=== PATIENT | male | born 1945 | race Caucasian/White ===

== ENCOUNTER 2016-05-23 07:00 | Day surgery (SDC) | payer OTHER ==
[~2016-05-23] VITALS: Ht 180.3 cm; Wt 95.0 kg
[~2016-05-23 07:00] MED LIST: ASPI-973 PO; CARV3.122 PO; CETI5TAB28 PO; DILT120C52 PO; FLUT16SP NS; HYDR-3938 PO; KLO5T PO; LOSA25TA21 PO; Lactated Ringer's 1,000 ML IV ONE; MULT-1018 PO; ZOLP5TAB6 PO; ZYL100 PO
[2016-05-23] MEDS ORDERED: Lactated Ringer's 1,000 ML IV SCH (07:27)
--- NOTE | 2016-05-23 07:27 | PCM.HPANE ---
Patient Data Surgeon Admitting Provider: Attending Provider:Eduardo Hernandez MD Primary Care Physician:Germain Campos MD Other Provider:Lalo Castillo Anesthesia Reason for Visit Colon Polyp, Epigastic Pain Ht/WT & BMI Body Mass Index Allergies Coded Allergies: Tcxkhyx-Icg-Fro Reductase Inhibitor (Verified Allergy, Unknown, 05/22/16) Past Anesthesia History Anesthesia History: Denies:: Abnormal Airway, Difficult Intubation Diabetes History Hx Diabetes?: No MRSA MRSA: No Medications Hypertension Medication: Yes Home Meds Incl Beta Corby: Yes Date Beta Cobry Taken: May 23, 2016 Time Beta Corby Taken: 04:45 Reported Medications Testosterone Enanthate 200 Mg/1 Ml [id number] Mg IM 05/23/16 Sildenafil Citrate (Sildenafil)20 Mg Avpmqt82 Mg PO 05/23/16 Ranitidine 150 Mg [id number] Mg PO DAILY Ref 0 05/23/16 Hydrochlorothiazide 12.5 Mg Toqwjq73.5 Mg PO DAILY 30 Days Ref 0 05/23/16 Meloxicam 7.5 Mg/5 Ml Oral.susp15 Mg PO DAILY 30 Days 05/23/16 Zolpidem 5 Mg TabletUnknown Dose PO HS PRN For Insomnia Ref 0 05/22/16 Multivitamin (Multi Vitamin Daily)1 Each Tablet1 Each PO DAILY 30 Days Ref 0 05/22/16 Losartan Potassium 25 Mg TabletUnknown Dose PO DAILY 05/22/16 Hydralazine 10 Mg Buyrzl67 Mg PO BID Ref 0 05/22/16 Fluticasone Propionate (Fluticasone Propionate Nasal)16 Gm [place].susp2 [place] NS BID #16 GM Ref 0 05/22/16 Clonazepam 0.5 Mg TabletUnknown Dose PO TID PRN For Anxiety Ref 0 05/22/16 Cetirizine 5 Mg Tablet5 Mg PO HS Ref 0 05/22/16 Carvedilol 3.125 Mg TabletUnknown Dose PO BID Ref 0 05/22/16 Diltiazem ER (Cartia XT)120 Mg Cap.er.24hUnknown Dose PO DAILY 05/22/16 Aspirin 81 Mg Fymlpv25 Mg PO DAILY Ref 0 05/22/16 Allopurinol 100 Mg TabletUnknown Dose PO DAILY Ref 0 05/22/16 History History of ENT Problems?: No Hx of Heart Problems?: Yes Cardiovascular History: Positive for:: Hypertension Hx of Respiratory Problem?: No Hx Neurologic Problems?: No Hx of GI Problems?: Yes Gastrointestinal History: Positive for:: Gastroesphageal Reflux Hx of Problems?: No HX of Peritoneal Dialysis: No Hx Musculoskeletal Problems?: No Hx of Psycho/Social Problems?: No Hx Surgeries?: No Hx Any Other Health Problems?: No Stop/Bang Treated for Sleep Apnea?: No Do You Have a CPAP Machine?: No Risk Assessment Category Category 1A: Patient has history of documented sleep apnea, and HAS NOT received any narcotic, sedative or anesthesia administration during this stay. Category 1B: Patient has history of documented sleep apnea, and HAS received any narcotic , sedative or anesthesia administration during this stay Category 2: Patient has SUSPECTED Obstructive Sleep Apnea, and HAS received any narcotic , sedative or anesthesia administration during this stay. Category 3: Patient has SUSPECTED Obstructive Sleep Apnea and HAS NOT received narcotic, sedative or anesthesia administration during this stay. Category 4: Outpatient in Procedural Areas with known sleep apnea or who screen positive for High Risk via the STOP/BANG questionnaire. Exam Exam General Appearance: Alert, Oriented X3, Cooperative, No Acute Distress HEENT/AIRWAY: MP 2 Lungs: Clear to Auscultation, Normal Air Movement Heart: Exam Unremarkable, Regular Rate/Rhythm, No Murmurs/Rubs/Gallops Plan Impression Patient chart reviewed, patient interviewed and anesthestic plan with risks, benefits, and alternatives discussed, and informed consent obtained. ASA Physical Status: ASA2 Mod Systemic Disease Anesthetic Plan: MAC Bene/Risks/Altern/Consents: Yes HP Complete Prior to Induction: Yes Oral Rangel MD May 23, 2016 07:27
[2016-05-23 07:29] VITALS: BP 153/88; PULSE 64; RESP 16; O2SAT 96
[2016-05-23] MEDS ORDERED: MetoCLOpramide 5 mg/mL 2 mL Inj IVPUSH PRN (07:30)
[2016-05-23] MEDS ORDERED: Ondansetron 2 mg/mL 2 mL Inj IVPUSH PRN (07:30)
[2016-05-23] MEDS ORDERED: HYDR12.55 PO (07:37)
[2016-05-23] MEDS ORDERED: SILD20TA14 PO (07:37)
[2016-05-23] MEDS ORDERED: TEST200V21 IM (07:37)
[2016-05-23] MEDS ORDERED: MELO7.5O PO (07:37)
[2016-05-23] MEDS ORDERED: RANI150C4 PO (07:37)
[2016-05-23 08:30] VITALS: BP 88/59; PULSE 58; RESP 14; O2SAT 91
--- NOTE | 2016-05-23 08:34 | PCM.ANEP2 ---
Post Anesthesia Evaluation ASA/CMS Post Anesthesia VS in Patient's Normal Range?: Yes Resp Stable; Airway Patent?: Yes CV Function & Hydration Stable: Yes Mental Status Recovered?: Yes Pain control Satisfactory?: Yes N/V Control Satisfactory?: Yes Oral Rangel MD May 23, 2016 08:34
--- NOTE | 2016-05-23 08:34 | PCM.ANEP1 ---
Post Anesthesia Phase 1 PACU Phase 1 Assessment Vital Signs Vital Signs Date Time Temp Pulse Resp B/P Pulse Ox O2 Delivery O2 Flow Rate FiO2 05/23/16 08:30 58 14 88/59 91 Room Air 05/23/16 07:29 36.3 64 16 153/88 96 Room Air Anesthetic Administered: MAC Level of Alertness: Sleepy, easy to arouse MENDOZA's with Equal Strength: Yes Pain: No Nausea or Vomiting: No Oxygen Delivery: Nasal Cannula Lungs: Clear to Auscultation, Normal Air Movement Dermatome Level: Full Sensation Oral Rangel MD May 23, 2016 08:34
[2016-05-23 08:40] VITALS: PULSE 56; RESP 17; O2SAT 91
[2016-05-23 08:50] VITALS: PULSE 69; RESP 17; O2SAT 95
--- NOTE | 2016-05-23 09:15 | ENDO ---
[address] [address] ENDOSCOPY PROCEDURE PATIENT: ZE PERKINS : 1945 MR#: [id number] ADMIT: 05/23/2016 JOB ID: [id number] DATE OF SERVICE: 05/23/2016 PRIMARY CARE PHYSICIAN: Germain Campos MD. PROCEDURES: 1. Esophagogastroduodenoscopy with biopsies. 2. Colonoscopy. INDICATIONS: A 70-year-old male with intermittent dyspepsia that is actually reasonably well controlled with Zantac. He additionally presents for colon cancer screening with a history of unknown histology polyp or polyps. EQUIPMENT: 1. PCF H 180 AL. 2. GIF H 180 J. SEDATION: Monitored anesthesia as provided by Dr. Oral Rangel MD. COMPLICATIONS: None identified. BOWEL PREPARATION: Fair, adequate exam. PROCEDURE IN DETAIL: After the risks and benefits were explained, written and verbal informed consent was obtained. The patient was brought into the endoscopy suite and placed into the left lateral decubitus position. Sedation was achieved as above. The scope was introduced into the mouth through the bite block and advanced to the second portion the duodenum. The scope was slowly withdrawn to carefully examine the mucosa for any defects or lesions. Retroflexed views were accomplished in the stomach. The stomach was decompressed. The scope removed from the patient who tolerated the procedure well. The patient was then turned around. A digital rectal examination accomplished. No significant pathology appreciated. The scope was introduced into the rectum and advanced under direct visualization to cecum as identified by the appendiceal orifice and ileocecal valve. The scope was slowly withdrawn to carefully examine the mucosa for any defects or lesions. Retroflexed views were accomplished in the rectum. The colon was decompressed. The scope removed from the patient who tolerated the procedure well. FINDINGS: 1. Duodenum: No significant pathology from the bulb through the second portion. 2. Stomach: No outlet obstruction. No ulcers. No mass lesions. Mild diffuse gastropathy was seen throughout and a biopsy was taken at random for exclusion of Helicobacter or any other underlying histopathology. Retroflexed views of the LES were unremarkable. 3. Esophagus: The squamocolumnar junction generally appeared to correlate with the top of the gastric folds. However in the 12 o'clock and six o'clock locations, there were a couple of tongues of possible Zarate's extending up to about 1 cm to 1.5 cm from the GE junction. Two biopsies were taken from these locations. No evidence of any acute erosive changes. No stricturing. No nodularity. Subtle sliding hiatal hernia was appreciated. The remainder of the esophagus was unremarkable. 4. Colon: No significant polyps, mass lesions or inflammatory features identified throughout. Retroflexed views were unremarkable from within the rectum. ENDOSCOPIC DIAGNOSES: 1. Subtle sliding hiatal hernia. 2. 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 Minimal gastropathy. 4. Visually unremarkable colonoscopy to cecum. RECOMMENDATIONS: 1. Await histopathology. 2. If Zarate's is identified, then repeat EGD will be suggested in 9-12 months. 3. Continue antisecretory therapy with Zantac in that this has been sufficient to control symptoms and there was no evidence of acute erosive change visually. 4. Repeat colonoscopy 10 years' time.
== END 2016-05-23 23:59 | disposition home or self-care (01) ==
LOC: END 07:00
PROVIDERS: ATTEND Internal Medicine Gastroenterology
DX: Z12.11 Encounter for screening for malignant neoplasm of colon (principal); Z86.010 Personal history of colon polyps; K22.70 Barrett's esophagus without dysplasia; K44.9 Diaphragmatic hernia without obstruction or gangrene; K31.9 Disease of stomach and duodenum, unspecified; G47.30 Sleep apnea, unspecified; Z79.82 Long term (current) use of aspirin
CPT/HCPCS: 43239; G0105; J7120